=== PATIENT | male | born 1940 | race Caucasian/White ===

== ENCOUNTER → 2020-08-31 | Day surgery (SDC) | payer MEDICARE, BC ==
[~2020-08-31] VITALS: Ht 152.4 cm; Wt 100.0 kg
[~2020-08-31] MED LIST: ACET500T68 PO; ALBU2.5V14 NEB; AMOX1TAB61 PO; ASPI-630 PO; ATOR40TA59 PO; BUPIVACAINE MPF 0.5% 30 ML VIAL. ONE; DAPT350V IV; ERTA1VIA16 IV; FURO40TA4 PO; HYDR-2761 PO; HYDROcodone/APAP 5/325MG 1 TAB TABLET PO ONE; HYDROmorphone 2 MG/ML VIAL IVP PRN; IV RINGERS,LACTATED 1000ML 1,000 ML IV SCH; LIDOCAINE 1% PF 30 ML VIAL. ONE; LINE600T12 PO; LISI-517 PO; LOSA-73 PO; METO-239 PO; MORPHINE SULFATE 2 MG/ML INJ. IVP PRN; NAPR220T70 PO; POTA10TA12 PO; POVIDONE-IODINE 10% TOPICAL OINTMENT 28GM TUBE. TP ONE; PROCHLORPERAZINE 10 MG/2 ML VIAL. IVP PRN; RIVA15TA PO; fentaNYL PF VIAL 100 MCG/2 ML VIAL IVP PRN
[2020-08-31 12:33] VITALS: BP 119/66
--- NOTE | 2020-08-31 13:29 | SSS ---
ADMIT DATE: 08/31/2020 CHIEF COMPLAINT: Left second toe gangrene. HISTORY OF PRESENT ILLNESS: The patient is a pleasant 79-year-old male who appears younger than his stated age. 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 Basically, he has had chronic infection of the right second toe. He is now scheduled for amputation today. We have been requested for preoperative evaluation. PAST MEDICAL HISTORY: Hypertension, chronic anticoagulation, diabetes, asthma, hyperlipidemia, atrial fibrillation. ALLERGIES: None. FAMILY HISTORY: Diabetes. 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 He does not drink, smoke or take drugs. MEDICATIONS: Reviewed, please refer to the medication. He is on potassium, metoprolol, lisinopril, Lasix. He was on Eliquis. Apparently, they changed that to Xarelto, but he has been not taking that for over a week, losartan, Lasix 40 a day, albuterol and a statin. REVIEW OF SYSTEMS: GENERAL: No history of weight change, weakness or fevers. SKIN: No bruising, hair changes or rashes. EYES: No blurred, double or loss of vision. NOSE AND THROAT: No history of nosebleeds, hoarseness or sore throat. HEART: No history of palpitations, chest pain or shortness of breath on exertion. LUNGS: Denies cough, hemoptysis, wheezing or shortness of breath. GASTROINTESTINAL: Denies changes in appetite, nausea, vomiting, diarrhea or constipation. GENITOURINARY: No history of frequency, urgency, hesitancy or nocturia. NEUROLOGIC: Denies history of numbness, tingling, tremor or weakness. PSYCHIATRIC: No history of panic, anxiety or depression. ENDOCRINE: No history of heat or cold intolerance, polyuria or polydipsia. EXTREMITIES: Denies muscle weakness, joint pain, pain on walking or stiffness. PHYSICAL EXAMINATION: VITALS: Within normal limits and are stable. GENERAL: No apparent distress. Alert and oriented. HEENT: Normal cephalic atraumatic, external auditory canals are patent. EYES: Extraocular muscles are intact, pupils are equally round and reactive to light and accommodation. MUSCULOSKELETAL: Well developed, well nourished, good range of motion. ENDOCRINE: No thyromegaly was palpated. LYMPHATICS: No cervical chain or axillary nodes were noted. HEMATOPOIETIC: No bruising. NECK: Supple, no JVD, no thyromegaly was noted. LUNGS: Clear to auscultation in all lung pavon without rhonchi or wheezing. HEART: RRR, S1, S2 present. Peripheral pulses intact, no obvious murmurs were noted. ABDOMEN: Soft, nontender. Positive bowel sounds no organomegaly, normal bowel sounds. EXTREMITIES: Without any cyanosis, clubbing, or edema. Pedal pulses intact, Homans sign is negative. The right second toe is necrotic. NEUROLOGIC: Normal speech, normal tone. A and O x 3, moves all extremities, no obvious focal deficits. PSYCHIATRIC: Normal affect, normal mood. Stable. SKIN: No ulcerations or rashes, good skin turgor, no jaundice. VASCULAR: Good capillary refill, neurovascular bundle appears to be intact. ASSESSMENT AND PLAN: Peripheral vascular disease with a diabetic toe that needs to be amputated. Clinically, he looks great. He is at low risk for intraoperative or postoperative complications, so he will be cleared for surgery from my standpoint. Postoperatively if he needs to be admitted, I will be around to help with that, but suspect he could go home after surgery. For now, continue home meds. Thank you very much for allowing us to participate in the care of this nice gentleman. CASIMIRO DR: Ginna TID: [id number]
--- NOTE | 2020-08-31 15:47 | PDOC4 ---
OPERATIVE NOTE: Surgeon: Isacc Pre op DX: osteomyelitis 2nd digit left foot Post op DX: same Procedure: incision and drainage with 2nd toe amputation left foot Anesthesia: MAC with local Hemostasis: Left ankle tourniquet at 250mmHg x 17 min EBL 1ML Pathology: 2nd toe left foot Intra op findings: note no proximal sinus tract and 1st metatarsal head white gl istening cartilage with no signs of osteomyelitis. Patient tolerated anesthesia and procedure well transferred to PACU with VSS and VSI to left foot. TATYANA RETANA DPM Aug 31, 2020 15:47
[2020-08-31 16:35] VITALS: BP 106/57
--- NOTE | 2020-08-31 16:54 | RAD ---
EXAM: LEFT FOOT 3 VIEWS. HISTORY: Second toe amputation COMPARISON: None. FINDINGS: Three views of the left foot are obtained. The second ray has been amputated at through the metatarsophalangeal joint. There appears to be a cortical erosion along the third distal phalangeal tuft. Alignment is normal. 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 There is diffuse soft tissue swelling throughout the forefoot and midfoot. There are small plantar and posterior calcaneal spurs. IMPRESSION: 1. Correlate for acute osteomyelitis at the third distal phalangeal tuft. Electronically signed by: Dequan Gregg MD (08/31/2020 4:52 PM) [id number]
--- NOTE | 2020-08-31 19:59 | OP ---
DATE OF SURGERY: 08/31/2020 PREOPERATIVE DIAGNOSIS: Osteomyelitis, second digit, left foot. POSTOPERATIVE DIAGNOSIS: Osteomyelitis, second digit, left foot. PROCEDURE: Incision and drainage with second toe amputation, left foot. SURGEON: Nimisha Dexter DPM. ANESTHESIA: MAC with local. HEMOSTASIS: Left ankle tourniquet at 250 mmHg x 17 minutes. INDICATIONS: The patient is a 79-year-old male who complains of a chronic ulceration to the second toe of the left foot. He was admitted to [facility] at the beginning of this month for IV antibiotics and has been treated with IV antibiotics. Discussed with the patient continued IV antibiotics versus isolated second digit amputation and switching to p.o. antibiotics. We discussed with him the possible risks, benefits, complications to include delayed or nonhealing, need for further surgery, transfer lesion, the hallux and third toe may deviate closer together. He could also have re-ulceration, delayed healing, nonhealing, infection, pulmonary embolism, DVT, loss of toe, foot, limb or life. All questions were answered. No guarantees made. DESCRIPTION OF PROCEDURE: The patient was transported to the operating room via cart and placed on the operating table in supine position. Following verification of the surgery, the patient's limb was performed. He was given IV propofol and a second digit block was administered to the left foot consisting of a 1:1 mixture of 1% lidocaine plain and 0.5% Marcaine plain. A well-padded tourniquet was placed over the left ankle and the left foot was prepped and draped in the usual aseptic manner. Please note prior to the injection, a time-out was taken to verify the patient's surgery and limb to be performed. The left foot was prepped and draped in the usual aseptic manner. [place] exsanguination was used to elevate the left foot and the left ankle tourniquet was then inflated to 250 mmHg. Attention was directed to the second digit where 2 converging semielliptical incisions were made from the medial and lateral aspect of the toes. These then were deepened down to the level of the metatarsophalangeal joint and the second toe was disarticulated and sent to Pathology. All small vessels were cauterized. The metatarsal head was noted to be white, glistening with no signs of acute infection. No proximal sinus tracts noted. No deep abscess noted. The wound culture was then taken, aerobic and anaerobic at this time and the wound was then copiously irrigated with sterile saline and closed with 4-0 nylon. Postop dressing was applied with Betadine ointment, Adaptic gauze, 4 x 4s, Kerlix bandage, Trevor bandage and applied Trevor bandages from the metatarsal heads up approximately to the tibial tuberosity to control his lymphedema. Tourniquet was deflated and good perfusion was noted to all digits of the left foot. The patient tolerated both anesthesia and procedure well and was transported to the PACU with vital signs stable and vascular status intact to the left foot. POSTOPERATIVE PLAN: Postop instructions are in the chart. Discussed with Dr. Meehan ____ and will begin on p.o. Augmentin and Zyvox b.i.d. for 10 days. We will discontinue the IV antibiotics at this time. RIRI/YEISON/TIFFANY DR: Anny TID: [id number]
== END | disposition home or self-care (01) ==
LOC: SURG 12:13
PROVIDERS: ATTEND Podiatrist Foot & Ankle Surgery
DX: M86.8X7 Other osteomyelitis, ankle and foot (principal); I11.0 Hypertensive heart disease with heart failure; I50.9 Heart failure, unspecified; I48.91 Unspecified atrial fibrillation; E78.00 Pure hypercholesterolemia, unspecified; E11.42 Type 2 diabetes mellitus with diabetic polyneuropathy; E66.9 Obesity, unspecified; J44.9 Chronic obstructive pulmonary disease, unspecified; G47.30 Sleep apnea, unspecified; M19.90 Unspecified osteoarthritis, unspecified site; Z79.82 Long term (current) use of aspirin; Z79.84 Long term (current) use of oral hypoglycemic drugs; Z79.899 Other long term (current) drug therapy; Z98.890 Other specified postprocedural states; Z88.8 Allergy status to other drugs, medicaments and biological substances
CPT/HCPCS: 28820; 73630; 87071; 87075; 87106; A4930; A6223; A6253; A6402; A6449; A6450; J3490; A4657; A6443